=== PATIENT | female | born 1975 | race Caucasian/White ===

== ENCOUNTER 2023-07-28 13:39 | Emergency (ER) | payer MEDICAID ==
[~2023-07-28] VITALS: Ht 147.3 cm; Wt 63.5 kg
[~2023-07-28 13:39] MED LIST: ACET325T PO; WARF5TAB2 PO
[2023-07-28 14:21] VITALS: BP_SYST 139; PULSE 117; RESP 18; TEMP 98; O2SAT 100
[2023-07-28 16:11] LABS: BASOPHILS % (AUTO) 0.4 % (0.0-2.0); EOSINOPHILS # (AUTO) 0.4 K/uL (0.0-0.4); EOSINOPHILS % (AUTO) 3.4 % (0.0-4.0); HEMATOCRIT 39.1 % (36-48); HEMOGLOBIN 13.2 g/dL (12.0-16.0); LYMPHOCYTES # (AUTO) 1.6 K/uL (1.0-5.5); LYMPHOCYTES % (AUTO) 14.6 % (20.5-51.5); MEAN CORPUSCULAR HEMOGLOBIN 30 pg (27-31); MEAN CORPUSCULAR HGB CONC 34 % (32-36); MEAN CORPUSCULAR VOLUME 88 fL (79.0-98.0); MONOCYTES # (AUTO) 0.7 K/uL (0.0-1.0); MONOCYTES % (AUTO) 6.9 % (1.7-9.3); NEUTROPHILS % (AUTO) 74.7 % (40.0-70.0); PLATELET COUNT (AUTO) 371 K/uL (130-430); RED BLOOD CELL COUNT(AUTO) 4.46 MIL/uL (4.2-6.2); RED CELL DISTRIBUTION WIDTH 13.3 % (9.0-15.0); WHITE BLOOD COUNT (AUTO) 10.7 K/uL (4.8-10.8)
[2023-07-28 16:30] LABS: BILIRUBIN,URINE NEGATIVE (NEGATIVE); BLOOD, URINE NEGATIVE (NEGATIVE); CLARITY/URINE CLEAR (CLEAR); COLOR,URINE YELLOW (YELLOW); GLUCOSE,URINE NEGATIVE (NEGATIVE); KETONES,URINE NEGATIVE (NEGATIVE); LEUKOCYTE ESTERASE ,URINE NEGATIVE (NEGATIVE); NITRITE, URINE NEGATIVE (NEGATIVE); PROTEIN URINE NEGATIVE (NEGATIVE)
[2023-07-28 16:35] LABS: CALCIUM 9.5 mg/dL (8.4-11.0); CREATININE 0.56 mg/dL (0.55-1.30); POTASSIUM 4.6 mmol/L (3.5-5.1); TOTAL BILIRUBIN 0.4 mg/dL (0.0-1.0); TOTAL PROTEIN, SERUM 8.2 g/dL (6.4-8.3)
[2023-07-28] MEDS: NACL 0.9% 1,000 ML IV ONE (16:53)
[2023-07-28] MEDS: LORazepam 2 MG/ML VIAL IVP ONE (19:30)
[2023-07-28] MEDS ORDERED: LORazepam 1 MG TABLET PO ONE (19:30)
[2023-07-28 20:35] VITALS: BP_SYST 121; PULSE 98; RESP 17; TEMP 97; O2SAT 97
== END 2023-07-28 20:35 | disposition home or self-care (01) ==
LOC: SED 13:39
DX: R33.9 Retention of urine, unspecified (principal); R00.0 Tachycardia, unspecified; Z91.040 Latex allergy status; Z88.5 Allergy status to narcotic agent; Z88.1 Allergy status to other antibiotic agents; Z88.2 Allergy status to sulfonamides; Z88.8 Allergy status to other drugs, medicaments and biological substances; Z79.899 Other long term (current) drug therapy
CPT/HCPCS: 99283; 96360; 80053; 81001; 85025; 36415; J7030; 81003

== ENCOUNTER 2023-08-03 16:04 | Emergency (ER) | payer MEDICAID ==
[~2023-08-03] VITALS: Ht 147.3 cm; Wt 65.8 kg
[2023-08-03 16:27] VITALS: BP_SYST 134; PULSE 87; RESP 16; TEMP 97.7; O2SAT 99
[2023-08-03 19:52] LABS: BILIRUBIN,URINE NEGATIVE (NEGATIVE); BLOOD, URINE NEGATIVE (NEGATIVE); CLARITY/URINE CLEAR (CLEAR); COLOR,URINE YELLOW (YELLOW); GLUCOSE,URINE NEGATIVE (NEGATIVE); KETONES,URINE NEGATIVE (NEGATIVE); LEUKOCYTE ESTERASE ,URINE TRACE (NEGATIVE); NITRITE, URINE POSITIVE (NEGATIVE); PROTEIN URINE NEGATIVE (NEGATIVE); UROBILINOGEN,URINE 0.2 (0.2-1.0)
[2023-08-03 20:41] LABS: BACTERIA,URINE MODERATE /HPF (None Seen)
[2023-08-03] MEDS ORDERED: LEVO-62 PO (21:11)
== END 2023-08-03 21:20 | disposition home or self-care (01) ==
LOC: SED 16:04
DX: Z46.6 Encounter for fitting and adjustment of urinary device (principal); N39.0 Urinary tract infection, site not specified; Q05.9 Spina bifida, unspecified; Z91.040 Latex allergy status; Z88.5 Allergy status to narcotic agent; Z88.1 Allergy status to other antibiotic agents; Z88.2 Allergy status to sulfonamides; Z88.8 Allergy status to other drugs, medicaments and biological substances; Z79.899 Other long term (current) drug therapy; Z79.2 Long term (current) use of antibiotics
CPT/HCPCS: 81000; 81001; 81015; 87086; 87186; 99283

== ENCOUNTER 2023-08-05 15:07 | Emergency (ER) | payer MEDICAID ==
[~2023-08-05] VITALS: Ht 147.3 cm; Wt 65.8 kg
[~2023-08-05 15:07] MED LIST changes: +LEVO-62 PO
[2023-08-05 15:29] VITALS: BP_SYST 131; PULSE 86; RESP 16; TEMP 97.7; O2SAT 97
[2023-08-05] MEDS ORDERED: NITR-85 PO (17:56)
[2023-08-05 18:09] LABS: BILIRUBIN,URINE NEGATIVE (NEGATIVE); BLOOD, URINE NEGATIVE (NEGATIVE); CLARITY/URINE CLEAR (CLEAR); COLOR,URINE YELLOW (YELLOW); GLUCOSE,URINE NEGATIVE (NEGATIVE); KETONES,URINE NEGATIVE (NEGATIVE); LEUKOCYTE ESTERASE ,URINE NEGATIVE (NEGATIVE); NITRITE, URINE POSITIVE (NEGATIVE); PROTEIN URINE NEGATIVE (NEGATIVE); UROBILINOGEN,URINE 0.2 (0.2-1.0)
[2023-08-05 18:23] VITALS: BP_SYST 131; PULSE 86; RESP 16; TEMP 97.7; O2SAT 97
[2023-08-05 18:30] LABS: BACTERIA,URINE FEW /HPF (None Seen); RBC,URINE 0-3 /HPF (0-3); WBC,URINE 0-3 /HPF (0-3)
== END 2023-08-05 18:22 | disposition home or self-care (01) ==
LOC: SED 15:07
DX: N39.0 Urinary tract infection, site not specified (principal); Q05.9 Spina bifida, unspecified; Z88.2 Allergy status to sulfonamides; Z88.5 Allergy status to narcotic agent; Z88.1 Allergy status to other antibiotic agents; Z88.8 Allergy status to other drugs, medicaments and biological substances; Z91.040 Latex allergy status
CPT/HCPCS: 81000; 81001; 81015; 81025; 87086; 87186; 99283